=== PATIENT | female | born 1955 | race Caucasian/White ===

== ENCOUNTER 2016-06-30 12:14 | Day surgery (SDC) | payer OTHER ==
[~2016-06-30] VITALS: Ht 160 cm; Wt 58.0 kg
[~2016-06-30 12:14] MED LIST: CHOL400T32 PO; MULT-762 PO; NADO80TA13 PO; OMEP40CA6 PO
[2016-06-30 13:14] VITALS: Ht 160 cm; Wt 58.0 kg
[2016-06-30 13:27] VITALS: BP 128/61; PULSE 58; RESP 24
[2016-06-30] MEDS ORDERED: ONE A DAY VITAMIN PO (13:35)
[2016-06-30] MEDS ORDERED: CHOLESTYRAMINE PO (13:35)
[2016-06-30] MEDS ORDERED: PROPOFOL 20 ML ONE (14:37)
[2016-06-30 15:25] VITALS: BP 117/62; PULSE 54; RESP 20
--- NOTE | 2016-06-30 18:58 | GILP ---
DATE OF PROCEDURE: 06/30/2016 PROCEDURE: Esophagogastroduodenoscopy with biopsies. BRIEF HISTORY AND INDICATIONS: The patient is being evaluated for history of cirrhosis of the liver . PREMEDICATION: Monitored anesthesia care by anesthesiologist. SURGEON: Micaela Sullivan MD INSTRUMENT USED: Olympus panendoscope. SURGEON: Micaela Sullivan MD. TECHNIQUE: After informed consent, with the patient/relatives understanding the procedure, its indic ations, potential risks and complications, including but not limited to: allergic reaction, bleeding , perforation or infection, and after all pertinent questions were answered to the patients satisfac tion, the patient/relatives signed witnessed informed consent. Following this, premedication was administered slowly IV push under careful cardiovascular and respi ratory monitoring with pulse oximetry, automatic blood pressure and boring machine operator. Once the sedative effect was achieved the patient was place in the left lateral decubitus, the panen doscope was introduced and advanced under visual control. Careful examination of the upper gastrointestinal tract, both on insertion as well as withdrawal of the instrument disclosed the following findings: ESOPHAGUS: The distal esophagus shows esophageal varices graded as II/IV. No therapeutic intervent ion is required at this time. STOMACH: Upon entrance to the stomach, air was insufflated, the gastric navarro distended normally. There is erythema and edema of the mucosa of a moderate degree. Biopsies were obtained to rule out H. pylori infection. PYLORUS: The pylorus appears patent and within normal limits, with no evidence of gastric outlet obs truction. DUODENUM: The duodenal mucosa was carefully examined in the duodenal bulb as well as the second port ion of the duodenum and appears unremarkable with no evidence of duodenitis, ulcer or neoplasm. The instrument was then withdrawn, the patient tolerated the procedure well and was transfer out of the endoscopy suite awake, and in good condition to continue recovery under observation IMPRESSION: 1. Grade II/IV esophageal varices, no intervention required. 2. Moderate gastritis, rule out Helicobacter pylori infection, biopsies obtained. PLAN: The patient will be treated with PPIs. Pathology will be reviewed as soon as available. Nalini veillance EGD in 6 months is recommended. Dictated By: MICAELA SULLIVAN MS/BRIE Conf#: [id number] DID#: [id number]
== END 2016-06-30 15:25 | disposition home or self-care (01) ==
LOC: GIL 12:14
PROVIDERS: ATTEND Internal Medicine Gastroenterology
DX: K29.50 Unspecified chronic gastritis without bleeding (principal); I85.00 Esophageal varices without bleeding
CPT/HCPCS: 43239; 88305; 88312; Z7610